=== PATIENT | female | born 1995 | race Caucasian/White ===

== ENCOUNTER 2022-12-05 10:27 | Emergency (ER) | payer OTHER ==
[~2022-12-05] VITALS: Ht 160 cm; Wt 98.0 kg
[2022-12-05 10:30] VITALS: BP 119/68
--- NOTE | 2022-12-05 10:34 | NUR ---
27 y/o female bib spouse from home, c/o vaginal bleeding during . pt states she took test yesterday and was positive. states she has been having pelvic cramping and light spotting since last month. LMP: 09/29/22 pmh: lio rodrigez med: denies
[2022-12-05 11:06] LABS: BASOPHILS % (AUTO) 0.3 % (0.0-2.0); EOSINOPHILS # (AUTO) 0.1 K/uL (0-0.4); EOSINOPHILS % (AUTO) 0.8 % (0.0-4.0); HEMATOCRIT 36.6 % (36-48); HEMOGLOBIN 12.3 g/dL (12.0-16.0); LYMPHOCYTES # (AUTO) 2.2 K/uL (2.5-16.5); LYMPHOCYTES % (AUTO) 30.2 % (20.5-51.1); MEAN CORPUSCULAR HEMOGLOBIN 29 pg (27-31); MEAN CORPUSCULAR HGB CONC 34 g/dL (33-37); MEAN CORPUSCULAR VOLUME 84.9 fL (80-94); MONOCYTES # (AUTO) 0.6 K/uL (0.8-1.0); MONOCYTES % (AUTO) 7.6 % (1.7-9.3); NEUTROPHILS # (AUTO) 4.5 K/uL (1.8-7.7); NEUTROPHILS % (AUTO) 61.1 % (42.2-75.2); PLATELET COUNT (AUTO) 225 K/uL (140-450); RED BLOOD CELL COUNT(AUTO) 4.31 MIL/uL (4.20-5.40); RED CELL DISTRIBUTION WIDTH 13.4 % (11.6-13.7); WHITE BLOOD COUNT (AUTO) 7.3 K/uL (4.8-10.8)
--- NOTE | 2022-12-05 11:32 | NUR ---
Patient ambulated to bed 6.
[2022-12-05 12:37] LABS: APPEARANCE,URINE CLEAR (CLEAR); BILIRUBIN,URINE SMALL (NEGATIVE); BLOOD, URINE NEGATIVE (NEGATIVE); COLOR,URINE YELLOW (YELLOW); LEUKOCYTE ESTERASE ,URINE TRACE (NEGATIVE); NITRITE, URINE NEGATIVE (NEGATIVE); UGLUCOSE NEGATIVE (NEGATIVE)
[2022-12-05 12:57] LABS: OTHER CASTS, URINE None Seen /LPF (None Seen)
[2022-12-05] MEDS ORDERED: CEPH-588 PO (13:16)
[2022-12-05 13:20] VITALS: BP 126/72
== END 2022-12-05 13:20 | disposition home or self-care (01) ==
LOC: MED 10:27
DX: O20.0 Threatened abortion (principal); O23.41 Unspecified infection of urinary tract in pregnancy, first trimester; Z3A.09 9 weeks gestation of pregnancy; Z79.899 Other long term (current) drug therapy; Z98.84 Bariatric surgery status
CPT/HCPCS: 36415; 76801; 81001; 81025; 84702; 85025; 86900; 86901; 87086; 99284

== ENCOUNTER 2022-12-25 06:44 | Emergency (ER) | payer OTHER ==
[~2022-12-25] VITALS: Ht 160 cm; Wt 96.6 kg
[~2022-12-25 06:44] MED LIST: CEPH-588 PO
[2022-12-25 07:00] VITALS: BP 147/80
--- NOTE | 2022-12-25 07:13 | NUR ---
Urine collected to sent lab
[2022-12-25] MEDS ORDERED: DOPPLER MC ONE (07:21)
--- NOTE | 2022-12-25 07:29 | NUR ---
27/F PRESENTS TO ED WITH C/O VAGINAL BLEEDING SINCE THIS MORNING. PATIENT REPORTS SHE IS CURRENTLY 12 WEEKS , A0. PATIENT DENIES ABDOMINAL PAIN, N/V/D, OR DISCHARGE.
[2022-12-25 07:55] LABS: APPEARANCE,URINE CLEAR (CLEAR); BILIRUBIN,URINE NEGATIVE (NEGATIVE); BLOOD, URINE 3+ (NEGATIVE); COLOR,URINE YELLOW (YELLOW); LEUKOCYTE ESTERASE ,URINE NEGATIVE (NEGATIVE); NITRITE, URINE NEGATIVE (NEGATIVE); UGLUCOSE NEGATIVE (NEGATIVE)
--- NOTE | 2022-12-25 07:55 | NUR ---
DR. MERCEDES BEDSIDE EVALUATING PATIENT
[2022-12-25 08:17] LABS: RBC,URINE 0-5 /HPF (0-5); WBC,URINE 0-5 /HPF (0-5)
[2022-12-25 08:29] VITALS: BP 98/65
--- NOTE | 2022-12-25 08:29 | NUR ---
Patient discharged with v/s stable. Written and verbal after care instructions ABOUT THREATENED MISCARRIAGE given and explained. Patient verbalized understanding. Ambulatory with steady gait. All questions addressed prior to discharge. Advised to follow up with PMD.
== END 2022-12-25 08:29 | disposition home or self-care (01) ==
LOC: MED 06:44
DX: O20.0 Threatened abortion (principal); Z3A.12 12 weeks gestation of pregnancy; Z79.899 Other long term (current) drug therapy; Z98.890 Other specified postprocedural states
CPT/HCPCS: 81001; 81025; 99283